=== PATIENT | female | born 1945 | race Caucasian/White ===

== ENCOUNTER → 2018-08-08 | Outpatient (CLI) | payer MEDICARE, OTHER ==
[~2018-08-08] MED LIST: ALBU8.5H8 PO; ALPR0.5T10 PO; ASPI-515 PO; BUPR150T73 PO; BUPR300T49 PO; CHOL200052 PO; CLON0.1T22 PO; DILT300C42 PO; DILT360C PO; ESOM40CA PO; FLUT1DIS IH; FLUT1DIS3 INH; FURO-92 PO; IBAN150T15 PO; IPRA3AMP18 NEB; LEFL20TA16 PO; LEVO100T PO; LISI-167 PO; MONT10TA9 PO; OMEG500C3 PO; OXYC-302 PO; POTA10TA5 PO; POTA20TA89 PO; PRAV40TA2 PO; PRED2.5T PO; RIZA10TA20 PO; SIMV40TA3 PO; TRIA1CAP3 PO; VITAMIN B PO; WARF5TAB PO; ZOLP10TA PO; [UNRECOGNIZED DRUG - CODE] PO; [UNRECOGNIZED DRUG - OTHER] PO; hydrocodone PO; oxycodone
[2018-08-08 11:58] LABS: BASOPHILS # (AUTO) 0.03 x10^3/uL (0-0.1); BASOPHILS % (AUTO) 1 % (0-1); EOSINOPHILS # (AUTO) 0.04 x10^3/uL (0-0.4); EOSINOPHILS % (AUTO) 1 % (1-7); LYMPHOCYTES # (AUTO) 1.23 x10^3/uL (1-3.4); LYMPHOCYTES % (AUTO) 19 % (22-44); MD NO; MEAN CORPUSCULAR HEMOGLOBIN 28.6 pg (27.0-34.8); MEAN CORPUSCULAR HGB CONC 33.1 g/dL (32.4-35.8); MEAN CORPUSCULAR VOLUME 86.3 fL (80-100); MEAN PLATELET VOLUME 9.2 fL (7.4-10.4); MONOCYTES # (AUTO) 0.42 x10^3/uL (0.2-0.8); MONOCYTES % (AUTO) 6 % (2-9); NEUTROPHILS # (AUTO) 4.78 x10^3/uL (1.8-6.8); NEUTROPHILS % (AUTO) 74 % (42-75); PLATELET COUNT 226 x10^3/uL (130-400); RED BLOOD COUNT 4.32 x10^6/uL (3.82-5.3); RED CELL DISTRIBUTION WIDTH 17.3 % (9.6-15.2)
[2018-08-08 12:04] LABS: MICROSCOPIC NOT IND
[2018-08-08 12:08] LABS: INTERNATIONAL NORMALIZED RATIO 0.98 (0.93-1.1); PROTHROMBIN TIME 10.3 Seconds (9.6-11.5)
[2018-08-08 12:09] LABS: ANION GAP 6 mmol/L (5-15); CALCIUM 9.7 mg/dL (8.5-10.1); CHLORIDE 109 mmol/L (98-107); CREATININE 1.35 mg/dL (0.55-1.02)
[2018-08-08 12:23] LABS: CULTURE INDICATED? NO
== END | disposition home or self-care (01) ==
LOC: STAR 10:45
PROVIDERS: ATTEND Neurological Surgery
DX: Z01.818 Encounter for other preprocedural examination (principal); M48.061 Spinal stenosis, lumbar region without neurogenic claudication
CPT/HCPCS: 36415; 80048; 81003; 85025; 85610; 85730; 93005

== ENCOUNTER 2018-08-22 05:56 | Outpatient (CLI) | payer MEDICARE, OTHER ==
[~2018-08-22] VITALS: Ht 162.6 cm; Wt 66.8 kg
[2018-08-22] MEDS ORDERED: HYDROCORTISONE 100 MG INJ. IVPush STA (06:11)
[2018-08-22 06:24] VITALS: BP 149/81
[2018-08-22] MEDS ORDERED: THROMBIN 20,000 UNIT VIAL TP ONE (06:24)
[2018-08-22] MEDS ORDERED: BACITRACIN 50,000 UNIT ONE (06:24)
[2018-08-22] MEDS ORDERED: BUPIVACAINE/PF 0.25% ONE (06:24)
[2018-08-22] MEDS ORDERED: EPINEPHRINE 1 MG/ML, 1ML ONE (06:24)
[2018-08-22] MEDS ORDERED: HYDROCORTISONE 100 MG INJ. IVPush ONE (06:30)
== END 2018-08-22 08:45 | disposition home or self-care (01) ==
LOC: CLISVCS 05:56 → OUT 05:56 → CLISVCS 08:45 → EDSTATUS 18:15
PROVIDERS: ATTEND Neurological Surgery
DX: M48.061 Spinal stenosis, lumbar region without neurogenic claudication (principal); Z53.9 Procedure and treatment not carried out, unspecified reason; I10 Essential (primary) hypertension; G43.909 Migraine, unspecified, not intractable, without status migrainosus; Z90.710 Acquired absence of both cervix and uterus; Z98.890 Other specified postprocedural states; Z95.1 Presence of aortocoronary bypass graft; Z87.01 Personal history of pneumonia (recurrent); Z79.82 Long term (current) use of aspirin; Z88.6 Allergy status to analgesic agent; Z88.5 Allergy status to narcotic agent; Z88.8 Allergy status to other drugs, medicaments and biological substances; Z72.89 Other problems related to lifestyle
CPT/HCPCS: J0171; J3490

== ENCOUNTER 2018-08-27 11:08 | Inpatient (IN) | payer MEDICARE, OTHER ==
[~2018-08-27] VITALS: Ht 154.9 cm; Wt 79.0 kg
[~2018-08-27 11:08] MED LIST changes: +BACITRACIN 50,000 UNIT ONE; +BUPIVACAINE/PF 0.25% ONE; +CEFAZOLIN 1,000 MG ONE; +DEXAMETHASONE 4 MG/ML, 1ML ONE; +EPINEPHRINE 1 MG/ML, 1ML ONE; +GLYCOPYRROLATE 0.2MG/1ML, 5ML ONE; +MICROFIBRILLAR COLLAGEN 1 GM TP ONE; +NEOSTIGMINE 1 MG/ML, 10ML ONE; +ONDANSETRON 2MG/ML, 2ML ONE; +PROPOFOL 10 MG/ML, 20ML ONE; +ROCURONIUM 10MG/ML,5ML ONE; +SUCCINYLCHOLINE 20 MG/ML, 10ML ONE; +THROMBIN 20,000 UNIT VIAL TP ONE; +THROMBIN 5,000 UNIT VIAL TP ONE; +VANCOMYCIN 1,000 MG ONE
[2018-08-27] MEDS ORDERED: LACTATED RINGERS 1,000 ML IV SCH (11:40)
[2018-08-27] MEDS ORDERED: HYDROCORTISONE 100 MG INJ. IVPush ONE (12:00)
[2018-08-27 12:09] VITALS: BP 178/103
[2018-08-27] MEDS ORDERED: MIDAZOLAM 1 MG/ML, 2ML ONE (12:49)
[2018-08-27] MEDS ORDERED: FENTANYL PF 250 MCG/5ML ONE (12:49)
[2018-08-27] MEDS ORDERED: BUPIVACAINE/PF-EPI 0.25% 1:200K INFIL ONE ×2 (14:45→14:46)
[2018-08-27] MEDS ORDERED: METOCLOPRAMIDE 5 MG/ML, 2ML IV PRN (15:00)
[2018-08-27] MEDS ORDERED: MEPERIDINE/PF 25MG/0.5ML IVPush PRN (15:00)
[2018-08-27] MEDS ORDERED: KETOROLAC 30 MG/1 ML IV PRN (15:00)
[2018-08-27] MEDS ORDERED: ALBUTEROL SULFATE 2.5 MG/3 ML NPPB PRN (15:00)
[2018-08-27] MEDS ORDERED: LABETALOL 5MG/ML, 20ML IV PRN (15:00)
[2018-08-27] MEDS ORDERED: hydrALAzine 20 MG/ML, 1ML IV PRN (15:00)
[2018-08-27] MEDS ORDERED: ONDANSETRON 2MG/ML, 2ML IVPush PRN ×2 (15:00→16:00)
[2018-08-27] MEDS ORDERED: PROMETHAZINE 25 MG/ML, 1ML IV PRN (15:00)
[2018-08-27] MEDS ORDERED: OXYcodone 5 MG/5 ML ORAL.SOL UDC PO PRN (15:00)
[2018-08-27] MEDS ORDERED: MICROFIBRILLAR COLLAGEN 1 GM TP ONE (15:27)
[2018-08-27] MEDS ORDERED: THROMBIN 5,000 UNIT VIAL TP ONE (15:27)
[2018-08-27] MEDS ORDERED: HYDROmorphone 1 MG/ML, 1ML INJ IVPush PRN (16:00)
[2018-08-27] MEDS ORDERED: HYDROmorphone 2 MG/ML, 1ML ONE (16:00)
[2018-08-27] MEDS ORDERED: PROMETHAZINE 25 MG/ML, 1ML IM PRN (16:00)
[2018-08-27] MEDS ORDERED: FENTANYL PF 100 MCG/2ML ONE (16:00)
[2018-08-27] MEDS ORDERED: OXYcodone 5 MG/5 ML ORAL.SOL UDC ONE (16:00)
[2018-08-27] MEDS ORDERED: PHARMACY MAY ADJ FOR RENAL FX MC PRN (16:00)
[2018-08-27] MEDS ORDERED: RIZATRIPTAN 10MG TABLET PO PRN (16:00)
[2018-08-27] MEDS ORDERED: BISACODYL 10 MG SUPP PR PRN (16:00)
[2018-08-27] MEDS ORDERED: MAGNESIUM HYDROXIDE 8%, 30ML UDC PO PRN (16:00)
[2018-08-27] MEDS ORDERED: ZOLPIDEM 10MG TABLET PO PRN (16:00)
[2018-08-27] MEDS ORDERED: HYDROmorphone PCA 30 MG/30 ML IV PRN (16:00)
[2018-08-27] MEDS: FENTANYL PF 100 MCG/2ML IV PRN ×2 (16:02→16:07)
[2018-08-27] MEDS: HYDROmorphone 1 MG/ML, 1ML INJ IV PRN ×4 (16:05→16:47)
[2018-08-27] MEDS ORDERED: KETOROLAC 30 MG/1 ML ONE (16:18)
[2018-08-27] MEDS ORDERED: HYDROCORTISONE 100 MG INJ. IVPush SCH ×2 (18:00→21:00)
[2018-08-27 20:22] VITALS: BP 114/74
[2018-08-27] MEDS: SODIUM CHLORIDE FLUSH 10ML SYR IVF SCH (20:41)
[2018-08-27] MEDS: PRAVASTATIN 40 MG TABLET PO SCH (20:46)
[2018-08-27] MEDS: HYDROCORTISONE 100 MG INJ. IVPush SCH (20:46)
[2018-08-27] MEDS: MONTELUKAST 10 MG TABLET PO SCH (20:46)
[2018-08-27] MEDS: CEFAZOLIN PMX 1GM/50ML 50 ML IVPB SCH (22:03)
[2018-08-28 00:12] VITALS: BP 132/70
[2018-08-28] MEDS: NS + 20MEQ KCL 1,000 ML IV SCH ×3 (00:14→20:00)
[2018-08-28] MEDS: HYDROCORTISONE 100 MG INJ. IVPush SCH ×2 (04:33→11:56)
[2018-08-28 05:04] VITALS: BP 102/60
[2018-08-28] MEDS: CEFAZOLIN PMX 1GM/50ML 50 ML IVPB SCH (05:45)
[2018-08-28] MEDS: LEVOTHYROXINE 100 MCG TABLET PO SCH (05:46)
[2018-08-28] MEDS: HYDROcodone/APAP 10/325 MG TABLET PO PRN ×5 (06:46→20:02)
[2018-08-28] MEDS: SODIUM CHLORIDE FLUSH 10ML SYR IVF SCH ×2 (07:08→19:51)
[2018-08-28 07:25] VITALS: BP 101/57
[2018-08-28] MEDS: DILTIAZEM CD 180 MG CAP.ER.24H PO SCH (07:49)
[2018-08-28] MEDS: SENNA/DOCUSATE TABLET PO SCH (07:49)
[2018-08-28] MEDS: BUPROPION SR 150 MG TABLET PO SCH (07:49)
[2018-08-28] MEDS: PANTOPROZOLE 40MG TABLET PO SCH ×2 (07:49→15:42)
[2018-08-28] MEDS: TIZANIDINE 2MG TABLET PO PRN (07:55)
[2018-08-28 14:23] VITALS: BP 116/90
[2018-08-28] MEDS: PRAVASTATIN 40 MG TABLET PO SCH (19:50)
[2018-08-28] MEDS: DIPHENHYDRAMINE 50 MG/ML, 1ML IVPush PRN (19:50)
[2018-08-28] MEDS: MONTELUKAST 10 MG TABLET PO SCH (19:51)
[2018-08-28 20:22] VITALS: BP 112/49
[2018-08-29] MEDS: TIZANIDINE 2MG TABLET PO PRN (00:17)
[2018-08-29] MEDS: OXYcodone/APAP 5/325MG TABLET PO PRN ×4 (00:17→11:25)
[2018-08-29] MEDS: DIPHENHYDRAMINE 50 MG/ML, 1ML IVPush PRN (01:51)
[2018-08-29 02:28] VITALS: BP 90/35
[2018-08-29 04:04] VITALS: BP 127/57
[2018-08-29] MEDS: NS + 20MEQ KCL 1,000 ML IV SCH (05:55)
[2018-08-29] MEDS: LEVOTHYROXINE 100 MCG TABLET PO SCH (05:56)
[2018-08-29 07:25] VITALS: BP 109/57
[2018-08-29] MEDS ORDERED: HYDROCORTISONE 20 MG TABLET PO SCH ×2 (07:30→09:00)
[2018-08-29] MEDS: DILTIAZEM CD 180 MG CAP.ER.24H PO SCH (08:08)
[2018-08-29] MEDS: SENNA/DOCUSATE TABLET PO SCH (08:08)
[2018-08-29] MEDS: PANTOPROZOLE 40MG TABLET PO SCH (08:09)
[2018-08-29] MEDS: BUPROPION SR 150 MG TABLET PO SCH (08:09)
[2018-08-29] MEDS: SODIUM CHLORIDE FLUSH 10ML SYR IVF SCH (08:09)
[2018-08-29] MEDS ORDERED: OXYC-302 PO (10:41)
[2018-08-29] MEDS ORDERED: TIZA2CAP2 PO (10:42)
== END 2018-08-29 11:55 | disposition home or self-care (01) | DRG 520 ==
LOC: OUT 11:08 → ORIP 16:20 → 4NOR 17:28
PROVIDERS: ADMIT Neurological Surgery; ATTEND Neurological Surgery
PROC: 01NB0ZZ Release Lumbar Nerve, Open Approach (ICD-10-PCS; 2018-08-27)
PROC: 01NR0ZZ Release Sacral Nerve, Open Approach (ICD-10-PCS; 2018-08-27)
PROC: 0SP00AZ Removal of Interbody Fusion Device from Lumbar Vertebral Joint, Open Approach (ICD-10-PCS; 2018-08-27)
PROC: 00NY0ZZ Release Lumbar Spinal Cord, Open Approach (ICD-10-PCS; principal; 2018-08-27 14:00)
DX: M48.062 Spinal stenosis, lumbar region with neurogenic claudication (principal); M48.07 Spinal stenosis, lumbosacral region; I10 Essential (primary) hypertension; M51.35 Other intervertebral disc degeneration, thoracolumbar region; M51.37 Other intervertebral disc degeneration, lumbosacral region; G43.909 Migraine, unspecified, not intractable, without status migrainosus; J45.909 Unspecified asthma, uncomplicated; I25.10 Atherosclerotic heart disease of native coronary artery without angina pectoris; Z87.01 Personal history of pneumonia (recurrent); Z98.1 Arthrodesis status; Z95.2 Presence of prosthetic heart valve; Z90.49 Acquired absence of other specified parts of digestive tract; Z90.710 Acquired absence of both cervix and uterus; Z88.6 Allergy status to analgesic agent; Z88.2 Allergy status to sulfonamides; Z88.8 Allergy status to other drugs, medicaments and biological substances; Z82.3 Family history of stroke; Z82.49 Family history of ischemic heart disease and other diseases of the circulatory system; Z83.3 Family history of diabetes mellitus; Z83.6 Family history of other diseases of the respiratory system; I16.0 Hypertensive urgency
CPT/HCPCS: 72100; G0378; J0171; J0690; J1100; J1170; J1885; J2250; J2405; J2704; J2710; J3010; J3370; J3480; J3490; J0330; J1200; J1720; J7120